=== PATIENT | female | born 1950 | race Caucasian/White ===

== ENCOUNTER 2022-04-11 07:45 | Day surgery (SDC) | payer OTHER ==
[2022-04-06 16:01] VITALS: BMI 19.5
[2022-04-11] MEDS ORDERED: LIDOCAINE HCL/PF 2% SDV 5ML VIAL ONE (07:59)
[2022-04-11] MEDS ORDERED: PROPOFOL 20 ML ONE ×4 (07:59)
[2022-04-11 08:21] VITALS: TEMP 97.3
[2022-04-11] MEDS ORDERED: ONDANSETRON 4 MG/2 ML VIAL ONE (08:58)
[2022-04-11 10:08] VITALS: BP 111/62; PULSE 71
== END 2022-04-11 10:00 | disposition home or self-care (01) ==
LOC: FASU-ENDO 07:45
PROVIDERS: ATTEND Internal Medicine Gastroenterology
PROC: 0DJD8ZZ Inspection of Lower Intestinal Tract, Via Natural or Artificial Opening Endoscopic (ICD-10-PCS; principal; 2022-04-11 09:00)
DX: Z12.11 Encounter for screening for malignant neoplasm of colon (principal); Z83.71 Family history of colonic polyps